=== PATIENT | male | born 1990 | race African-American/Black ===

== ENCOUNTER 2021-06-10 11:35 | Emergency (ER) | payer BC, SELFPAY ==
--- NOTE | 2021-06-10 14:01 | RAD REPORT ---
EXAM DESCRIPTION: RAD - Chest Pa And Lat (2 Views) - 06/10/2021 1:53 pm CLINICAL HISTORY: COUGH COMPARISON: No comparisons FINDINGS: No evidence of edema or pneumonia. The heart size is within normal limits.No acute osseous abnormality. No significant pleural effusions or pneumothorax. IMPRESSION: No acute cardiopulmonary disease.
--- NOTE | 2021-06-10 14:41 | EDPHYS ---
Physician Documentation [facility] Name: Thanh Perez Age: 30 yrs Sex: Male : 1990 Arrival Date: 06/10/2021 Time: 11:39 Bed 11 Private MD: ED Physician Gonzalo Mora HPI: 06/10 14:38 This 30 yrs old Black Male presents to ER via Ambulatory with complaints of Fever, sp3 Chills,no taste,no smell. 14:38 30-year-old male with no past medical history presents with body aches, subjective sp3 fever, loss of taste and smell for approximately 3 days. Patient has no known sick contacts and has not been vaccinated. Patient denies shortness of breath, chest pain, back pain nausea, vomiting, diarrhea, syncope, rash, bleeding, any other ROS at this time.. Historical: - Allergies: 12:45 PENICILLINS; jl7 12:45 Ibuprofen; jl7 - Home Meds: 12:45 Unknown BP med, hasn't taken any since 2019 [Active]; jl7 - PMHx: 12:45 Hypertensive disorder; jl7 - Immunization history:: Client reports having NOT received the Covid vaccine. - Social history:: Smoking status: Patient denies any tobacco usage or history of. ROS: 14:39 ENT: Negative for injury, pain, and discharge, Cardiovascular: Negative for chest pain, sp3 palpitations, and edema, Respiratory: Negative for shortness of breath, cough, wheezing, and pleuritic chest pain, Abdomen/GI: Negative for abdominal pain, nausea, vomiting, diarrhea, and constipation, Back: Negative for injury and pain, Skin: Negative for injury, rash, and discoloration, Neuro: Negative for headache, weakness, numbness, tingling, and seizure, Endocrine: Negative for neck swelling, polydipsia, polyuria, polyphagia, and marked weight changes, Hematologic/Lymphatic: Negative for swollen nodes, abnormal bleeding, and unusual bruising. 14:39 Constitutional: Positive for body aches, fatigue, fever, Loss of taste and smell. Exam: 14:40 Constitutional: This is a well developed, well nourished patient who is awake, alert, sp3 and in no acute distress. Head/Face: Normocephalic, atraumatic. Eyes: Pupils equal round and reactive to light, extra-ocular motions intact. Lids and lashes normal. Conjunctiva and sclera are non-icteric and not injected. Cornea within normal limits. Periorbital areas with no swelling, redness, or edema. ENT: Nares patent. No nasal discharge, no septal abnormalities noted. External auditory canals are clear. Oropharynx with no redness, swelling, or masses, exudates, or evidence of obstruction, uvula midline. Mucous membranes moist. Chest/axilla: Normal chest wall appearance and motion. Nontender with no deformity. No lesions are appreciated. Cardiovascular: Regular rate and rhythm with a normal S1 and S2. No gallops, murmurs, or rubs. Normal PMI, no JVD. No pulse deficits. Respiratory: Lungs have equal breath sounds bilaterally, clear to auscultation and percussion. No rales, rhonchi or wheezes noted. No increased work of breathing, no retractions or nasal flaring. Abdomen/GI: Soft, non-tender, with normal bowel sounds. No distension or tympany. No guarding or rebound. No evidence of tenderness throughout. Skin: Warm, dry with normal turgor. Normal color with no rashes, no lesions, and no evidence of cellulitis. Vital Signs: 12:37 BP 181 / 128 LA; Pulse 98; Resp 17; Temp 98.4; Pulse Ox 100% ; Weight 117.93 kg; Height jl7 5 ft. 7 in. (170.18 cm); Pain 3/10; 14:29 BP 164 / 113; Pulse 89; iw 12:37 Body Mass Index 40.72 (117.93 kg, 170.18 cm) [facility] MDM: 13:54 Patient medically screened. sp3 14:40 ED course: Patient's chest x-ray is normal and is COVID-19 positive. General sp3 precautions were given including multivitamin. Patient is allergic to aspirin. No other intervention needed at this time. Patient educated on signs symptoms to return for further treatment. Patient understands need for isolation and infective nature of his diagnosis.. 06/10 12:52 Order name: COVID-19 : Document "Date of Symptom Onset" if Symptomatic. [facility] 06/10 12:52 Order name: XRAY Chest Pa And Lat (2 Views); Complete Time: 14:32 [facility] 06/10 14:26 Order name: SARS-COV-2 RT PCR; Complete Time: 14:32 EDMS Administered Medications: No medications were administered Disposition Summary: 06/10/21 14:41 Discharge Ordered Location: Home sp3 Condition: Stable sp3 Diagnosis - SARS-associated coronavirus as the cause of diseases classified elsewhere sp3 Discharge Instructions: - Discharge Summary Sheet sp3 - COVID-19 sp3 - Things to Know about the COVID-19 Pandemic - [facility] - COVID-19: Quarantine vs. Isolation - [facility] [place] Forms: - Medication Reconciliation Form sp3 - Thank You Letter sp3 - Antibiotic Education sp3 - Prescription Opioid Use sp3 Signatures: Dispatcher [employer] Cooper Lewis RN RN [email or web address] Gonzalo Mora sp3 Corrections: (The following items were deleted from the chart) 12:46 12:45 Allergies: No Known Allergies; jl7 jl7 13:19 12:52 CORONAVIRUS ordered. EDMS EDMS
--- NOTE | 2021-06-10 14:41 | ER ---
Nurse's Notes [facility] Name: Thanh Perez Age: 30 yrs Sex: Male : 1990 Arrival Date: 06/10/2021 Time: 11:39 Bed 11 Private MD: Diagnosis: SARS-associated coronavirus as the cause of diseases classified elsewhere Presentation: 06/10 12:37 Chief complaint: Patient states: Fever, chills, loss of taste and smell, cough, nasal jl7 congestion x 3 days. Coronavirus screen: Client denies travel out of the [place] in the last 14 days. congestion, cough unrelated to allergies, fever, loss of taste or smell, Client presents with at least one sign or symptom that may indicate coronavirus-19. Standard/surgical mask placed on the client. Provider contacted for isolation considerations. Ebola Screen: No symptoms or risks identified at this time. Initial Sepsis Screen: Does the patient meet any 2 criteria? No. Patient's initial sepsis screen is negative. Does the patient have a suspected source of infection? No. Patient's initial sepsis screen is negative. Risk Assessment: Do you want to hurt yourself or someone else? Patient reports no desire to harm self or others. Onset of symptoms was June 08, 2021. 12:37 Method Of Arrival: Ambulatory 7 12:37 Acuity: DANA 2 jl7 Historical: - Allergies: 12:45 PENICILLINS; jl7 12:45 Ibuprofen; jl7 - Home Meds: 12:45 Unknown BP med, hasn't taken any since 2019 [Active]; jl7 - PMHx: 12:45 Hypertensive disorder; jl7 - Immunization history:: Client reports having NOT received the Covid vaccine. - Social history:: Smoking status: Patient denies any tobacco usage or history of. Screenin:29 Abuse screen: Denies threats or abuse. Denies injuries from another. Nutritional iw screening: No deficits noted. Tuberculosis screening: No symptoms or risk factors identified. Fall Risk None identified. Assessment: 12:55 Reassessment: Dr. Mora gave VO for COVID swab and chest x-ray; Dr. Mora notified of jl7 BP, no new orders received at this time. 14:29 Reassessment: Patient appears in no apparent distress at this time. Patient and/or iw family updated on plan of care and expected duration. Pain level reassessed. Patient is alert, oriented x 3, equal unlabored respirations, skin warm/dry/pink. Vital Signs: 12:37 BP 181 / 128 LA; Pulse 98; Resp 17; Temp 98.4; Pulse Ox 100% ; Weight 117.93 kg; Height jl7 5 ft. 7 in. (170.18 cm); Pain 3/10; 14:29 BP 164 / 113; Pulse 89; iw 12:37 Body Mass Index 40.72 (117.93 kg, 170.18 cm) jl7 ED Course: 11:39 Patient arrived in ED. mr 12:45 Triage completed. jl7 12:45 Arm band placed on right wrist. jl7 12:54 COVID swab sent to lab. jl7 13:26 COVID-19 : Document "Date of Symptom Onset" if Symptomatic. Sent. iw 13:51 XRAY Chest Pa And Lat (2 Views) In Process Unspecified. EDFL 13:53 Gonzalo Mora is Attending Physician. sp3 14:14 Flavia Odom, RN is Primary Nurse. iw Administered Medications: No medications were administered Outcome: 14:41 Discharge ordered by MD. sp3 14:52 Patient left the ED. iw Signatures: Dispatcher [employer] EDFL BergTricia mr Flavia Odom, RN RN iw Cooper Stone RN RN jl7 Gonzalo Mora sp3 Corrections: (The following items were deleted from the chart) 12:46 12:45 Allergies: No Known Allergies; [place] [id number]
[2021-06-10 14:57] VITALS: TEMP 98.4; O2SAT 100
[2021-06-10 14:58] VITALS: BP 164/113
== END 2021-06-10 14:52 | disposition home or self-care (01) ==
LOC: ER 11:35
DX: U07.1 COVID-19 (principal); I10 Essential (primary) hypertension; Z88.0 Allergy status to penicillin; Z88.6 Allergy status to analgesic agent
CPT/HCPCS: 71046; 99283; U0003